=== PATIENT | male | born 1975 | race Caucasian/White ===

== ENCOUNTER 2025-03-31 12:45 | Emergency (ER) | payer SELFPAY ==
[2025-03-31 12:49] VITALS: BP 175/122; PULSE 117; RESP 17; TEMP 37.1; O2SAT 97; BMI 22.5
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
[2025-03-31 12:56] VITALS: BP 158/113; PULSE 109; O2SAT 96
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
[2025-03-31] MEDS: lidocaine-epi 1% 20 mL INJ 10 ML INJECTION (13:30)
[2025-03-31 14:12] VITALS: BP 176/110; PULSE 111; O2SAT 95
[2025-03-31] MEDS: bacitracin ointment Pkt 1 EACH TOPICAL (14:12)
== END 2025-03-31 14:10 | disposition home or self-care (01) ==
PROVIDERS: Emergency Provider Emergency Medicine
DX: S01.81XA Laceration without foreign body of other part of head, initial encounter (principal); Y04.2XXA Assault by strike against or bumped into by another person, initial encounter
CPT/HCPCS: 12011; 70450; 99284; J9999